=== PATIENT | female | born 1965 | race Two or more races ===

== ENCOUNTER 2023-12-12 17:10 | Emergency (ER) | payer MEDICARE, MEDICAID, SELFPAY ==
--- NOTE | 2023-12-12 | ECG_ITS ---
Test Reason : FALL Blood Pressure : / mmHG Vent. Rate : 070 BPM Atrial Rate : 070 BPM P-R Int : 184 ms QRS Dur : 086 ms QT Int : 430 ms P-R-T Axes : 029 049 019 degrees QTc Int : 464 ms Normal sinus rhythm Low voltage QRS Borderline ECG No previous ECGs available Referred By: Generic ED Physician Electronically Signed By:Ludwig Lehman
--- NOTE | ~2023-12-12 | CT_ITS ---
EXAMINATION: CT HEAD WITHOUT CONTRAST CLINICAL INFORMATION: Fall COMPARISON: None TECHNIQUE: Contiguous axial imaging was performed from the skull base to vertex without intravenous administration of contrast. This CT examination was performed using dose optimization techniques as appropriate, variously including the following: *Automated exposure control *Adjustment of mA and/or kV according to patient size (this includes techniques or standardized protocols for targeted exams where dose is matched to indication/reason for exam; i.e. extremities or head) *Use of iterative reconstruction technique DLP: 804.02 mGy-cm FINDINGS: There is no evidence of acute intracranial hemorrhage or territorial infarction. Chronic white matter small vessel ischemic changes. No abnormal mass effect or midline shift is seen. Velazquez to white matter differentiation is well preserved. No extra-axial fluid collections are identified. The ventricles are normal in size. There is no abnormal attenuation within the brain parenchyma. The osseous structures and soft tissues are normal. Mucoperiosteal thickening of the right maxillary sinus. The mastoid air cells and visualized portions of the paranasal sinuses are well aerated. CT/CT cervical spine wo IV con IMPRESSION: 1. No acute intracranial pathology. 2. Chronic white matter small vessel ischemic changes. EXAMINATION: Noncontrast CT scan of the cervical spine. INDICATION: Fall COMPARISON: None. TECHNIQUE: Helical, multidetector axial images were obtained from the occiput to the upper thorax. Coronal and sagittal reformats of the cervical spine were provided for interpretation. DLP: 366.95 mGy-cm FINDINGS: No acute fractures or dislocations of the cervical spine are seen. Straightening the normal cervical curvature. Multilevel degenerative changes. Anatomic alignment and positioning of the vertebral bodies and posterior elements is noted. The atlantoaxial joint and craniovertebral articulations are normal without evidence of subluxation. There is no prevertebral soft tissue swelling. Calcification involving the posterior aspect of the left thyroid lobe. Visualized portions of the long are unremarkable. IMPRESSION: 1. No acute visible fracture or dislocation. 2. Straightening the normal cervical curvature. 3. Multilevel degenerative changes.
[2023-12-12 17:37] VITALS: BP 130/72; PULSE 78; O2SAT 95; BMI 25.8
[2023-12-12 17:40] VITALS: BP 117/65; PULSE 70; RESP 18; TEMP 36.1; O2SAT 96
--- NOTE | 2023-12-12 17:46 | PC.NURSE ---
pt biba from [facility] d/t witnessed fall from table. pt was sitting on a table when she tipped back and fell. +headstrike, -loc, -thinners. per EMS/SNF staff - the way pt is presenting is baseline. baseline altered/combative/aggressive. pt usually has 1:1 sitter at [facility]. upon ED arrival. vss and up to date. pt responsive to physical stimuli only. when conversating - pt unable to follow commands appropriately and is speaking incoherently. c-collar placed by EMS. bleeding controlled w/ gauze. pt sitting upright in stretcher. no sob/wob noted. respirations even and unlabored. plan of care ongoing.
[2023-12-12 18:38] LABS: MANUAL DIFF FLAG NO
[2023-12-12 18:52] LABS: Anion Gap 13 (12-20); Blood Urea Nitrogen 30 mg/dL (9-16); Calcium 9.9 mg/dL (8.4-10.2); Carbon Dioxide 18 mmol/L (22-29); Chloride 111 mmol/L (96-108); Creatinine Clr Calc Pharmacy 40.5; Estimated Glomerular Filt Rate 34; Glucose Random 148 mg/dL (60-115); Potassium 4.3 mmol/L (3.3-5.1); Sodium 138 mmol/L (135-145)
[2023-12-12 19:03] LABS: Basophils Percent Auto 0.5 % (0-2); Eosinophils Absolute Auto 0.1 X10*3/uL (0.0-0.4); Eosinophils Percent Auto 1.3 % (0-4); Hematocrit 33.5 % (37.0-47.0); Hemoglobin 11.2 g/dl (12.0-16.0); Imm Gran Abs Auto 0.02 X10*3/uL (0.00-0.03); Imm Gran Pct Auto 0.4 % (0.0-0.4); Lymphocytes Absolute Auto 0.6 X10*3/uL (1.2-4.9); Mean Corpuscular HGB Conc 33.4 g/dl (31.0-35.0); Mean Corpuscular Hemoglobin 31.6 pg (27.0-33.0); Mean Corpuscular Volume 94.6 fL (80.0-98.0); Mean Platelet Volume 10.1 fL (9.4-12.3); Monocytes Absolute Auto 0.5 X10*3/uL (0.1-1.2); Monocytes Percent Auto 8.4 % (2-11); Neutrophils Absolute Auto 4.3 x10*3/uL (2.0-8.3); Neutrophils Percent Auto 78.4 % (45-73); Platelet Count 175 X10*3/uL (160-400); Red Blood Count 3.54 X10*6/uL (4.20-5.50); Red Cell Distribution Width 12.3 % (11.0-16.0); White Blood Count 5.5 X10*3/uL (4.8-10.8)
--- NOTE | 2023-12-12 21:50 | PC.NURSE ---
attempted to clean would , pt repeatedly yelled fuck you provider aware
--- NOTE | 2023-12-12 22:03 | PC.NURSE ---
called and gave jono carbajal nurse to nurse report
--- NOTE | 2023-12-12 22:24 | ED.FALL ---
HPI - Fall General Chief Complaint: Fall Stated Complaint: SITTING ON TABLE WHEN IT TIPPED OVER,+ HEAD STRIKE Time Seen by Provider: 12/12/23 17:42 Source: EMS and RN notes reviewed Mode of arrival: EMS Limitations: altered mental status History of Present Illness HPI Narrative: Patient is from [facility] with history of schizophrenia bipolar type apparently was at baseline trying to sit on a kitchen table top flipped and patient fell came with superficial abrasion at the top of the head no chest pain no fever Related Data Allergies Allergy/AdvReac Type Severity Reaction Status Date / Time No Known Allergies Allergy Verified 12/12/23 17:38 Review of Systems Review of Systems: Yes Unobtainable due to mental status PMFSH Social History Social History Advance Directives: No Advance Directives Information Provided: No Do you have a plan to hurt others: No Plan Physical Exam Vital Signs: Vital Signs: Last Vital Signs Temp 97 F 12/12/23 22:47 Pulse 70 12/12/23 22:47 Resp 18 12/12/23 22:47 BP 117/65 12/12/23 22:47 Pulse Ox 96 12/12/23 22:47 O2 Del Method Room Air 12/12/23 22:47 BMI result Body Mass Index 25.8 Appearance: Sleeping HEENT: Pharynx normal. Oral Mucosa moist patient with stable vitals Neck: Normal inspection. Neck supple. CVS: Normal heart rate and rhythm. Pulses normal. Respiratory: No respiratory distress. Equal air entry bilateral, no wheezing/rales/rhonchi Skin: Skin warm and dry. Normal skin color. Normal skin turgor. Extremities: No lower extremity edema. Neuro: Alert and awake. Medical Decision Making Medical Decision Making MDM Narrative: Patient after mechanical fall CT scan of the head and C-spine negative patient is back to her baseline patient ambulatory in the ED [facility] Lab Data 12/12/23 18:35 12/12/23 18:35 Labs: Lab Results 12/12/23 Range/Units 18:35 WBC 5.5 (4.8-10.8) X10*3/uL RBC 3.54 L (4.20-5.50) X10*6/uL Hgb 11.2 L (12.0-16.0) g/dl Hct 33.5 L (37.0-47.0) % MCV 94.6 (80.0-98.0) fL MCH 31.6 (27.0-33.0) pg MCHC 33.4 (31.0-35.0) g/dl RDW 12.3 (11.0-16.0) % Plt Count 175 (160-400) X10*3/uL MPV 10.1 (9.4-12.3) fL Immature Gran % (Auto) 0.4 (0.0-0.4) % Neut % (Auto) 78.4 H (45-73) % Lymph % (Auto) 11.0 L (20-40) % [place] % (Auto) 8.4 (2-11) % Eos % (Auto) 1.3 (0-4) % Baso % (Auto) 0.5 (0-2) % Lymph # (Auto) 0.6 L (1.2-4.9) X10*3/uL [place] # (Auto) 0.5 (0.1-1.2) X10*3/uL Eos # (Auto) 0.1 (0.0-0.4) X10*3/uL Baso # (Auto) 0.0 (0.0-0.2) X10*3/uL Abs Immat Gran (auto) 0.02 (0.00-0.03) X10*3/uL Absolute Neuts (auto) 4.3 (2.0-8.3) x10*3/uL Absolute Nucleated RBC 0.000 (0.0-0.012) X10*3/uL Nucleated RBC % (auto) 0.0 (0.0-0.2) /100WBC Sodium 138 (135-145) mmol/L Potassium 4.3 (3.3-5.1) mmol/L Chloride 111 H (96-108) mmol/L Carbon Dioxide 18 L (22-29) mmol/L Anion Gap 13 (12-20) BUN 30 H (9-16) mg/dL Creatinine 1.56 H (0.5-1.4) mg/dL Estim Creat Clear Calc 40.5 Estimated GFR 34 Random Glucose 148 H (60-115) mg/dL Calcium 9.9 (8.4-10.2) mg/dL Discharge Plan Discharge Clinical Impression: Fall Patient Disposition: Home, Self-Care Instructions: Fall Prevention for Older Adults (ED) Interventions: ED Discharge Assessment Last Done: 12/12/23 22:47 Print Language: Kinyarwanda
[2023-12-12 22:47] VITALS: BP 117/65; PULSE 70; RESP 18; TEMP 36.1; O2SAT 96
== END 2023-12-13 00:04 | disposition home or self-care (01) ==
PROVIDERS: Emergency Provider Internal Medicine
DX: S00.01XA Abrasion of scalp, initial encounter (principal); W19.XXXA Unspecified fall, initial encounter; Y93.9 Activity, unspecified; Y92.9 Unspecified place or not applicable; Y99.9 Unspecified external cause status
CPT/HCPCS: 36415; 70450; 72125; 80048; 85025; 93005; 99284

== ENCOUNTER → 2023-12-12 18:35 | Outpatient (BNV) | payer MEDICARE, MEDICAID, SELFPAY | PROVIDERS: Emergency Provider Internal Medicine; Visit Provider Internal Medicine Cardiovascular Disease | DX: R55 Syncope and collapse (principal) | CPT/HCPCS: 93010 ==